=== PATIENT | male | born 1970 | race Hispanic/Latino ===

== ENCOUNTER 2018-07-03 09:06 | Outpatient (CLI) | payer MEDICARE | END 2018-07-03 09:07 | disposition home or self-care (01) | LOC: RAD 09:06 ==

== ENCOUNTER 2018-09-03 10:20 | Emergency (ER) | payer MEDICARE ==
[2018-09-03 11:00] VITALS: BP 109/72; PULSE 110; RESP 18; TEMP 98.6; O2SAT 96; BMI 29.2
--- NOTE | 2018-09-03 11:44 | ED PDOC ---
Arrival/HPI - General Chief Complaint: Trauma Historian: Patient - History of Present Illness Narrative History of Present Illness (Text): 09/03/18 11:47 47 year old male, with past medical history of schizophrenia, presents to emergency department with a right arm and shoulder injury prior to arrival. Patient states he woke up and was walking to the bathroom when he tripped over his pants and fell onto his right side. Patient reports he heard a loud pop and felt sudden pain and an inability to move his arm. He notes numbness in right upper arm and swelling in anterior right shoulder. He notes he did not try to alleviate pain through ice or medication. Patient denies any loss of consciousness, bleeding, bruising, blurred vision, nausea, vomitting, diarrhea, or any other pain. Time/Duration: Prior to Arrival Symptom Onset: Gradual Symptom Course: Unchanged Activities at Onset: Light Context: Home Past Medical History - Provider Review Nursing Documentation Reviewed: Yes - Cardiac Hx Cardiac Disorders: No - Pulmonary Hx Respiratory Disorders: No - Neurological Hx Neurological Disorder: No - HEENT Hx HEENT Disorder: No - Renal Hx Renal Disorder: No - Endocrine/Metabolic Hx Endocrine Disorders: No - Hematological/Oncological Hx Blood Disorders: Yes Hx Hepatitis C: Yes - Integumentary Hx Dermatological Disorder: No - Musculoskeletal/Rheumatological Hx Musculoskeletal Disorders: No - Gastrointestinal Hx Gastrointestinal Disorders: Yes Hx Gastroesophageal Reflux: Yes - Genitourinary/Gynecological Hx Genitourinary Disorders: No - Psychiatric Hx Psychophysiologic Disorder: Yes Hx Anxiety: Yes Hx Bipolar Disorder: Yes Hx Depression: Yes Hx Substance Use: No - Anesthesia Hx Anesthesia: Yes Hx Anesthesia Reactions: No Hx Malignant Hyperthermia: No Family/Social History - Physician Review Nursing Documentation Reviewed: Yes Family/Social History: Unknown Family HX Smoking Status: Heavy Smoker > 10 Cigarettes Daily Hx Alcohol Use: No Hx Substance Use: No Allergies/Home Meds Allergies/Adverse Reactions: Allergies No Known Allergies Allergy (Verified 09/03/18 11:18) Home Medications: Home Meds Medication Instructions Recorded Confirmed QUEtiapine [SEROquel] 300 mg PO HS 11/16/13 06/23/15 risperiDONE [RisperDAL] 3 mg PO BID 11/16/13 06/23/15 [place] Carbonate [[place] 300 mg PO BID 06/23/15 06/23/15 Carbonate 300MG] Review of Systems - Physician Review All systems were reviewed & negative as marked: Yes - Review of Systems Constitutional: absent: Fevers Respiratory: absent: SOB, Cough Cardiovascular: absent: Chest Pain Gastrointestinal: absent: Abdominal Pain, Diarrhea, Vomiting Musculoskeletal: Joint Swelling (anterior right shoulder), Other (injury to right arm and shoulder, numbness in upper arm ). absent: Back Pain, Neck Pain Skin: absent: Rash Neurological: absent: Headache, Dizziness Physical Exam Vital Signs Reviewed: Yes Vital Signs Temp Pulse Resp BP Pulse Ox 09/03/18 10:40 98.6 F 110 H 18 109/72 96 Temperature: Afebrile Blood Pressure: Normal Pulse: Regular Respiratory Rate: Normal Appearance: Positive for: Well-Appearing, Non-Toxic, Comfortable Pain Distress: None Mental Status: Positive for: Alert and Oriented X 3 - Systems Exam Head: Present: Atraumatic, Normocephalic Pupils: Present: PERRL Extroacular Muscles: Present: EOMI Conjunctiva: Present: Normal Mouth: Present: Moist Mucous Membranes Neck: Present: Normal Range of Motion Respiratory/Chest: Present: Clear to Auscultation, Good Air Exchange. No: Respiratory Distress, Accessory Muscle Use Cardiovascular: Present: Regular Rate and Rhythm, Normal S1, S2. No: Murmurs Abdomen: No: Tenderness, Distention, Peritoneal Signs Back: Present: Normal Inspection Upper Extremity: Present: Swelling (mild swelling in right anterior shoulder), Other (decreased active ROM due to pain, full passive ROM, no ecchymosis or crepides ). No: Normal ROM, Erythema Lower Extremity: Present: Normal Inspection. No: Edema Neurological: Present: Motor Func Grossly Intact Skin: Present: Warm, Dry, Normal Color. No: Rashes Psychiatric: Present: Alert, Oriented x 3, Normal Insight, Normal Concentration Medical Decision Making ED Course and Treatment: 09/03/18 12:01 Impression: 47 year old male presents to emergency department for right arm injury this morning. Differential Diagnosis included but are not limited to: -- fractured clavicle/right shoulder -- rotator cuff injury -- right shoulder strain/sprain Plan: -- Motrin -- Valium -- X-ray right forearm -- X-ray right humerus -- X-ray right shoulder -- Reassess and disposition Prior Visits: Notes and results from previous visits were reviewed. Progress Notes: - RAD Interpretation Narrative RAD Interpretations (Text): 09/03/18 10:57 Shoulder x-ray, reviewed by radiologist: IMPRESSION: There is a comminuted fracture of the right humeral neck. Humerus x-ray, reviewed by radiologist: IMPRESSION: No distal humeral fracture Forearm x-ray, reviewed by radiologist: IMPRESSION: Unremarkable radiographs of the right forearm. Radiology Orders: 09/03/18 10:57 FOREARM RIGHT [RAD] Stat HUMERUS RIGHT [RAD] Stat SHOULDER RIGHT [RAD] Stat [place] Crew Member: Radiologist - Medication Orders Current Medication Orders: Discontinued Medications Diazepam (Valium) 5 mg PO ONCE ONE; Protocol Stop: 09/03/18 10:59 Ibuprofen (Motrin Tab) 600 mg PO STAT STA Stop: 09/03/18 10:59 - Scribe Statement The provider has reviewed the documentation as recorded by the Scribe Jennifer Goodwin All medical record entries made by the Scribe were at my direction and personally dictated by me. I have reviewed the chart and agree that the record accurately reflects my personal performance of the history, physical exam, medical decision making, and the department course for this patient. I have also personally directed, reviewed, and agree with the discharge instructions and disposition. Disposition/Present on Arrival - Present on Arrival Any Indicators Present on Arrival: No History of DVT/PE: No History of Uncontrolled Diabetes: No Urinary Catheter: No History of Decub. Ulcer: No History Surgical Site Infection Following: None - Disposition Have Diagnosis and Disposition been Completed?: Yes Diagnosis: Fall, Arm pain Disposition: HOME/ ROUTINE Disposition Time: 12:57 Patient Plan: Discharge Condition: STABLE Discharge Instructions (ExitCare): Shoulder Sprain (DC), Getting Up From a Fall Print Language: COMORAN Additional Instructions: All medical record entries made by the Scribe were at my direction and personally dictated by me. I have reviewed the chart and agree that the record accurately reflects my personal performance of the history, physical exam, medical decision making, and the department course for this patient. I have also personally directed, reviewed, and agree with the discharge instructions and disposition. Please apply ICE to your hand in combination with OTC medications Prescriptions: Cyclobenzaprine [Cyclobenzaprine HCl] 10 mg PO PRN PRN #12 tab PRN Reason: Muscle Spasm Naproxen [Naprosyn] 500 mg PO Q6H #12 tablet Referrals: Marni Medrano MD [Medical Doctor] - Follow up with primary [facility] [place] [Outside] - Follow up with primary Forms: [employer] (Mexican)
--- NOTE | 2018-09-03 12:28 | RAD ---
Date of service: 09/03/2018 PROCEDURE: Radiographs of the Right Shoulder HISTORY: deformity and pain COMPARISON: No prior. FINDINGS: BONES: There is a comminuted fracture of the right humeral neck. JOINTS: Normal. Glenohumeral and acromioclavicular joints preserved. No osteoarthritis. SOFT TISSUES: Normal. OTHER FINDINGS: None. IMPRESSION: There is a comminuted fracture of the right humeral neck.
--- NOTE | 2018-09-03 12:29 | RAD ---
PROCEDURE: Radiographs of the right humerus. HISTORY: deformity COMPARISON: None. FINDINGS: BONES: Normal. No fracture or focal lesion. There is a comminuted fracture of the right humeral neck. SOFT TISSUES: Normal. OTHER FINDINGS: None. IMPRESSION: No distal humeral fracture
--- NOTE | 2018-09-03 12:30 | RAD ---
PROCEDURE: Radiographs of the Right Forearm HISTORY: deformity and pain COMPARISON: None available. TECHNIQUE: Frontal and lateral views obtained. FINDINGS: BONES: No fracture or destructive lesion. JOINT SPACES: Unremarkable. OTHER FINDINGS: None. IMPRESSION: Unremarkable radiographs of the right forearm.
== END 2018-09-03 13:07 | disposition home or self-care (01) ==
LOC: ED 10:20
DX: M79.601 Pain in right arm (principal); F17.210 Nicotine dependence, cigarettes, uncomplicated; F20.9 Schizophrenia, unspecified; W01.0XXA Fall on same level from slipping, tripping and stumbling without subsequent striking against object, initial encounter